=== PATIENT | male | born 1995 | race Caucasian/White ===

== ENCOUNTER 2017-06-18 21:24 | Emergency (ER) | payer SELFPAY ==
[~2017-06-18] VITALS: Ht 172.7 cm; Wt 72.7 kg
[2017-06-18] MEDS: ACETAMINOPHEN 500 MG TABLET PO ONE ×2 (22:32→22:34)
[2017-06-18] MEDS: IBUPROFEN 600 MG TABLET PO ONE ×2 (22:33→22:34)
[2017-06-18 22:41] VITALS: BP 127/68
== END 2017-06-18 22:45 | disposition home or self-care (01) ==
LOC: EMS 21:26
DX: S80.01XA Contusion of right knee, initial encounter (principal); S80.02XA Contusion of left knee, initial encounter; F20.9 Schizophrenia, unspecified; F17.210 Nicotine dependence, cigarettes, uncomplicated; Z02.89 Encounter for other administrative examinations; X58.XXXA Exposure to other specified factors, initial encounter; Y93.89 Activity, other specified; Y92.89 Other specified places as the place of occurrence of the external cause; Y99.8 Other external cause status
CPT/HCPCS: 99283